=== PATIENT | male | born 1995 ===

== ENCOUNTER 2017-10-23 16:08 | Emergency (ER) | payer OTHER ==
[2017-10-23 16:22] VITALS: TEMP 98.7
[2017-10-23] MEDS ORDERED: Lidocaine 1% Inj (20ml) INFIL STA (16:26)
[2017-10-23] MEDS ORDERED: Tdap Vaccine 0.5 ml Vial (10-64 yrs) IM ONE ×2 (16:27→16:45)
[2017-10-23] MEDS ORDERED: Lidocaine 2% Inj (20ml) ONE (16:32)
[2017-10-23] MEDS ORDERED: Absorbable Gelatin Sponge Size 12-7 ONE (16:48)
--- NOTE | 2017-10-23 17:22 | C.PDOC ---
History Of Present Illness David Tomlinson is a 22 year old male, with no significant past medical history, who presents to the emergency department complaining of right 3rd finger injury onset prior to arrival. Patient reports he accidentally sliced the pad of right 3rd finger while cleaning a slicer. He denies any other medical complaints. PMD: None provided. Time Seen by Provider: 10/23/17 16:26 Chief Complaint (Nursing): Abnormal Skin Integrity History Per: Patient History/Exam Limitations: no limitations Onset/Duration Of Symptoms: Hrs ([employer]) Current Symptoms Are (Timing): Still Present Location Of Injury: Right: Hand (3rd finger) Quality Of Symptoms: Painful Past Medical History Reviewed: Historical Data, Nursing Documentation, Vital Signs Vital Signs: Last Vital Signs Temp 98.7 F 10/23/17 16:21 Pulse 76 10/23/17 17:34 Resp 16 10/23/17 17:34 BP 111/69 10/23/17 17:34 Pulse Ox 98 10/23/17 17:34 - Medical History PMH: No Chronic Diseases Surgical History: No Surg Hx Family History: States: Unknown Family Hx - Social History Hx Tobacco Use: No Hx Alcohol Use: No Hx Substance Use: No - Immunization History Hx Tetanus Toxoid Vaccination: No Hx Influenza Vaccination: No Hx Pneumococcal Vaccination: No Review Of Systems Musculoskeletal: Positive for: Hand Pain (right 3rd finger injury) Physical Exam - Physical Exam Skin: Normal Color, Warm, Dry Head: Atraumatic, Normacephalic Eye(s): bilateral: Normal Inspection Extremity: Normal ROM, No Swelling, Other (1x4cm avulsion of the pad of the right 3rd finger w/ steady bloody oozing.) Neurological/Psych: Oriented x3 ED Course And Treatment O2 Sat by Pulse Oximetry: 99 (RA) Pulse Ox Interpretation: Normal Medical Decision Making Medical Decision Making: Initial Impression: Finger injury Initial Plan: --Adacel 0.5 ml IM --Lidocaine 1% --Motrin tab 600 mg PO --reevaluation Procedure note: Performed a digitally block, used lidocaine 2%, 10ccs to the base of the finger. accidental finger pad avulsion injury with a slicer @ work in a [employer]. nothing to re-attach. digital block for pain control and hemostasis with good effect. Disposition Doctor Will See Patient In The: Office Counseled Patient/Family Regarding: Studies Performed, Diagnosis - Disposition Referrals: [facility] [Outside] [facility] [Outside] Baljinder Barnett MD [Staff Provider] - Disposition: HOME/ ROUTINE Disposition Time: 17:22 Condition: GOOD Additional Instructions: keep finger bandaged and clean and dry Follow-up tomorrow for eval w Dr. Barnett- Plastics/Hand Surgeon 1-2 days for re- eval or return to our [facility] for Wound Evaluation. elevate hand over your head for pain relief and to stop oozing. ice packs to finger 1/2 hour per hour as needed for pain/swelling Motrin 400 mg every 6 hours as needed for pain Tramadol 50 mg (narcotic) 1 tab every 6 hours as needed for more severe pain and sleep No antibiotics given Tdap given Prescriptions: traMADol [Ultram] 50 mg PO Q6H PRN #20 tab PRN Reason: pain Instructions: Skin Avulsion (ED) Forms: [employer] ([place]an) - Clinical Impression Clinical Impression: Avulsion, finger tip - Scribe Statement Bean Griffin Provider Attestation: All medical record entries made by the Scribe were at my direction and personally dictated by me. I have reviewed the chart and agree that the record accurately reflects my personal performance of the history, physical exam, medical decision making, and the department course for this patient. I have also personally directed, reviewed, and agree with the discharge instructions and disposition.
[2017-10-23 17:35] VITALS: BP 111/69; PULSE 76; RESP 16
[2017-10-23 18:30] VITALS: O2SAT 99
== END 2017-10-23 17:34 | disposition home or self-care (01) ==
LOC: C.ER 16:08
DX: S61.302A Unspecified open wound of right middle finger with damage to nail, initial encounter (principal); W29.8XXA Contact with other powered hand tools and household machinery, initial encounter; Y92.512 Supermarket, store or market as the place of occurrence of the external cause; Y99.0 Civilian activity done for income or pay

== ENCOUNTER 2017-10-25 17:40 | Emergency (ER) | payer OTHER ==
[2017-10-25 17:47] VITALS: BP 112/61; PULSE 68; RESP 18; TEMP 99.1; O2SAT 98
--- NOTE | 2017-10-25 18:18 | C.PDOC ---
History Of Present Illness 22 y/o M p/w wound check. Patient here 2 days ago with avulsion to finger tip. Patient denies any new redness, fever, discharge, or pain. Time Seen by Provider: 10/25/17 18:17 Chief Complaint (Nursing): Wound Check Past Medical History Vital Signs: Last Vital Signs Temp 99.1 F 10/25/17 17:46 Pulse 68 10/25/17 17:46 Resp 18 10/25/17 17:46 BP 112/61 10/25/17 17:46 Pulse Ox 98 10/25/17 18:18 Family History: States: Unknown Family Hx - Social History Hx Tobacco Use: No Hx Alcohol Use: No Hx Substance Use: No - Immunization History Hx Tetanus Toxoid Vaccination: No Hx Influenza Vaccination: No Hx Pneumococcal Vaccination: No Review Of Systems Except As Marked, All Systems Reviewed And Found Negative. Constitutional: Negative for: Fever Skin: Negative for: Rash Physical Exam - Physical Exam Additional Physical Exam Comments: Gen: NAD Skin: Finger flexor aspect distal phalanx with avulsed skin. No discharge, no bleeding, no surrounding erythema, no surrounding gangrene. Appears well healing. ED Course And Treatment O2 Sat by Pulse Oximetry: 98 Medical Decision Making Medical Decision Making: Redressed with antibiotic ointment. Instructed patient to make appointment to see Plastics and to return to ED for any redness, fever, discharge, darkening of skin. Disposition - Disposition Referrals: Baljinder Barnett MD [Staff Provider] - Disposition: HOME/ ROUTINE Disposition Time: 18:17 Condition: STABLE Instructions: Wound Care Forms: [employer] ([place]) - Clinical Impression Clinical Impression: Avulsion, finger tip
[2017-10-25] MEDS ORDERED: Bacitracin 500 Units/gm Oint Foilpak UD ONE (18:22)
== END 2017-10-25 18:28 | disposition home or self-care (01) ==
LOC: C.ER 17:40
DX: S61.302D Unspecified open wound of right middle finger with damage to nail, subsequent encounter (principal); W29.8XXD Contact with other powered hand tools and household machinery, subsequent encounter